=== PATIENT | male | born 1975 | race Caucasian/White ===

== ENCOUNTER 2017-10-28 13:51 | Outpatient (CLI) | payer OTHER ==
[2017-10-28 15:17] LABS: Anion Gap 15 mmol/L (10-20); BUN (Urea Nitrogen) 23 mg/dL (8.9-20.6); Calc. Creatinine Clearance 0 mL/min (70-130); Calcium 8.7 mg/dL (7.8-10.44); Carbon Dioxide 25 mmol/L (22-29); Chloride 105 mmol/L (98-107); Estimated GFR-MDRD 85; Glucose 100 mg/dL (70-105); Potassium 4.3 mmol/L (3.5-5.1); Sodium 141 mmol/L (136-145)
--- NOTE | 2017-10-28 16:50 | EKG ---
Test Reason : Blood Pressure : / mmHG Vent. Rate : 062 BPM Atrial Rate : 062 BPM P-R Int : 214 ms QRS Dur : 106 ms QT Int : 436 ms P-R-T Axes : 056 050 051 degrees QTc Int : 442 ms Sinus rhythm with 1st degree A-V block Otherwise normal ECG When compared with ECG of 03-FEB-2017 10:55, No significant change was found Confirmed by DR. Inderjit CURRY ([id number]) on 10/28/2017 4:49:28 PM Referred By: CLARY Confirmed By:DR. Inderjit CURRY
== END 2017-10-28 13:52 | disposition home or self-care (01) ==
LOC: LABBT 13:51
PROVIDERS: ATTEND Orthopaedic Surgery
DX: Z01.818 Encounter for other preprocedural examination (principal); S43.432A Superior glenoid labrum lesion of left shoulder, initial encounter; M75.102 Unspecified rotator cuff tear or rupture of left shoulder, not specified as traumatic; Z88.0 Allergy status to penicillin; Z88.1 Allergy status to other antibiotic agents
CPT/HCPCS: 80048; 93005; 93010

== ENCOUNTER 2017-10-31 10:40 | Day surgery (SDC) | payer OTHER ==
[2017-10-28 14:02] VITALS: BMI 49.6
[~2017-10-31 10:40] MED LIST: PROPOFOL 200 MG/20 ML VIAL ONE; ePHEDrine/0.9% NaCl/PF SYRINGE 50 mg/10 ml ONE
[2017-10-31] MEDS ORDERED: Midazolam HCl 2 mg/2 ml Vial ONE (11:06)
[2017-10-31] MEDS ORDERED: Fentanyl 100 MCG/2 ML VIAL ONE ×5 (11:07→16:51)
[2017-10-31] MEDS ORDERED: Bupivacaine/Epinephrine 0.25% 30 ML VIAL ONE (11:49)
[2017-10-31] MEDS ORDERED: EPINEPHrine 1 MG/ML AMP ONE (11:49)
[2017-10-31] MEDS ORDERED: Fentanyl 250 MCG/5 ML VIAL ONE (12:39)
[2017-10-31] MEDS ORDERED: Promethazine HCl 25 MG/ML VIAL ONE (15:41)
[2017-10-31] MEDS ORDERED: Ketorolac Tromethamine 30 MG/ML VIAL ONE (15:47)
[2017-10-31] MEDS ORDERED: Morphine 4 MG/ML VIAL ONE (15:55)
[2017-10-31] MEDS ORDERED: HYDROmorphone 0.5 MG/0.5 ML SYRINGE ONE ×2 (16:00→16:29)
[2017-10-31] MEDS ORDERED: HYDROcodone/Acetaminophen 5/325 mg Tablet ONE (18:07)
--- NOTE | 2017-10-31 21:46 | OP ---
DATE OF PROCEDURE: 10/31/2017 PREOPERATIVE DIAGNOSIS: SLAP lesion of the left shoulder with biceps tendinopathy. POSTOPERATIVE DIAGNOSIS: SLAP lesion of the left shoulder with biceps tendinopathy. PROCEDURES: Biceps tenotomy, arthroscopy of left shoulder and tenodesis of the biceps tendon. SURGEON: Randal Andrade M.D. DESCRIPTION OF PROCEDURE: The patient was brought to the operating room and after administration of general anesthetic intubation, he was placed in the left lateral decubitus position with the left nehemias e up and his left upper extremity and shoulder area were prepped and draped in the usual fashion. Th e arm was then suspended with 15 pounds of skin traction. The acromion was then marked out on the pa tient and a prior portal was used to insert the arthroscope. The biceps tendon appeared frayed and t hinned out as it exited the joint. There was mild glenohumeral arthropathy present. The rotator cuf f appeared to be intact. An anterior portal was established and the tendon was debrided. A Scorpion was used to grasp the tendon, but unfortunately when the tendon was being cut, the suture came loose and pulled out. Therefore, a small incision was made over the anterior acromion extending to 2 cm d istally over the deltoid. The deltoid was gently split and the bicipital groove was identified and t he tendon was secured with suture and then pulled up out of the wound. A Krackow type #2 FiberWire s titch was then placed in the tendon. A drill hole was placed in the humeral head. A tenodesis screw was then used to secure the tendon, but tenodesis screw cut out and broke. Very carefully then the drill was introduced back into the hole and aimed in a posterior direction and drilled down to approx imately 23 mm. A second tenodesis screw was then inserted and this one held pushing the tendon into the hole. The sutures were cut and passed through the tendon to additionally secured with another kn ot. The wound was irrigated and closed in layers, closing the deltoid with FiberWire, the subcutaneo us layer with Vicryl and the skin with chris. The scope was reinserted in the stump of the tendon and the glenoid was debrided with a shaver. The scope was then removed and the portals were closed w ith chris and a dressing was applied. The patient was then transferred to his bed and taken to rec overy room in satisfactory condition. He was monitored. When he was awake and alert, he was discharged home. He was wearing a pillow slin g. He was given prescription for pain medication, wound care instructions, and a followup appointmen yunior
== END 2017-10-31 18:52 | disposition home or self-care (01) ==
LOC: SDC 10:40
PROVIDERS: ATTEND Orthopaedic Surgery
PROC: 0MM24ZZ Reattachment of Left Shoulder Bursa and Ligament, Percutaneous Endoscopic Approach (ICD-10-PCS; principal; 2017-10-31)
PROC: 0LS24ZZ Reposition Left Shoulder Tendon, Percutaneous Endoscopic Approach (ICD-10-PCS; principal; 2017-10-31)
DX: S43.432A Superior glenoid labrum lesion of left shoulder, initial encounter (principal); M75.22 Bicipital tendinitis, left shoulder; Z79.899 Other long term (current) drug therapy; Z88.0 Allergy status to penicillin; Z88.1 Allergy status to other antibiotic agents; Z98.890 Other specified postprocedural states
CPT/HCPCS: C1713; J0171; J1170; J1885; J2250; J2270; J2550; J2704; J3010

== ENCOUNTER 2018-09-18 10:02 | Outpatient (CLI) | payer OTHER ==
--- NOTE | 2018-09-20 15:05 | MRI ---
FMR of the left shoulder with and without contrast INDICATION: Left shoulder pain. History of left shoulder surgery with persistent left shoulder pain TECHNIQUE: Multiplanar multisequence MR images were obtained of left shoulder with and without IV con trast. 20 cc of MultiHance was utilized for the examination. COMPARISON: None FINDINGS: Motion artifact limits image detail. Rotator cuff: Intact. Glenohumeral joint: Articular cartilage is intact. Glenoid labrum: Intact Biceps tendon and biceps anchor: There is postprocedural change of a proximal biceps tenodesis. Acromion clavicular joint: There is moderate to severe acromioclavicular joint osteoarthrosis. There is a prominent inferior projecting osteophyte off of the distal clavicle causing moderate impingement on the subjacent supraspinatus Subacromial subdeltoid space: No appreciable fluid. Axillary region: No lymphadenopathy. Surrounding left shoulder musculature: Normal. No evidence of atrophy or strain. IMPRESSION: 1. The rotator cuff is intact. 2. There is postprocedural change of a proximal biceps tenodesis 3. 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 There is a prominent inferior projecting osteophyte off the distal clavicle causing moderate impingement on the subjacent supraspin atus musculotendinous junction.
== END 2018-09-18 10:03 | disposition home or self-care (01) ==
LOC: SCSMRI 10:02
PROVIDERS: ATTEND Orthopaedic Surgery
DX: M75.102 Unspecified rotator cuff tear or rupture of left shoulder, not specified as traumatic (principal); M19.012 Primary osteoarthritis, left shoulder; M75.92 Shoulder lesion, unspecified, left shoulder; Z98.890 Other specified postprocedural states